=== PATIENT | male | born 1985 | race Caucasian/White ===

== ENCOUNTER 2017-04-30 19:39 | Emergency (ER) | payer BC ==
[~2017-04-30] VITALS: Ht 185.4 cm; Wt 70.3 kg
[~2017-04-30 19:39] MED LIST: AMOX875T PO; HYDR-971 PO
--- NOTE | 2017-04-30 19:48 | ED.ADGEN ---
Past History Past Medical History: No Pertinent History Past Surgical History: No Surgical History Alcohol Use: None Drug Use: None Adult General HPI HPI Patient is a 31-year-old man, with no significant past no history, who presents to the emergency department with complaint of right toe pain. Patient states he was "horsing around", with his sister, when a door was slammed and he struck his toe against the door. Patient states this occurred about an hour prior to arrival, states she was ambulating on the foot, noted increased swelling and pain and pressure underneath the nail, prompting him to come to the ED for evaluation. He denies any other injuries, didn't take any medications prior to coming to the ED, states his tetanus is up-to-date. Review of Systems Review of Systems Constitutional: Denies fever or chills [] Eyes: Denies change in visual acuity, redness, or eye pain [] HENT: Denies nasal congestion or sore throat [] Respiratory: Denies cough or shortness of breath [] Cardiovascular: No additional information not addressed in HPI [] GI: Denies abdominal pain, nausea, vomiting, bloody stools or diarrhea [] : Denies dysuria or hematuria [] Musculoskeletal: Denies back pain, complaining of pain swelling and bleeding from the right great toe. Integument: Denies rash or skin lesions [] Neurologic: Denies headache, focal weakness or sensory changes [] Endocrine: Denies polyuria or polydipsia [] Current Medications Current Medications Current Medications Medications (Trade) Dose Ordered Sig/Marion Start Time Stop Time Status Last Admin Dose Admin Cephalexin HCl (Keflex) 500 mg 1X ONCE 04/30/17 23:15 04/30/17 23:16 DC 04/30/17 23:15 500 MG Lidocaine HCl 20 ml 1X ONCE 04/30/17 22:30 04/30/17 22:31 DC 04/30/17 22:30 20 ML Lidocaine/ Epinephrine (Let Topical) 3 ml 1X ONCE 04/30/17 22:30 04/30/17 22:31 DC 04/30/17 22:30 3 ML Naproxen (Naprosyn) 500 mg 1X ONCE 04/30/17 20:00 04/30/17 20:01 DC 04/30/17 20:00 500 MG Tramadol HCl (Starter Pack - Ultram) 1 startpack 1X ONCE 04/30/17 23:15 04/30/17 23:16 DC 04/30/17 23:15 1 STARTPACK Allergies Allergies Allergies Coded Allergies Type Severity Reaction Last Updated Verified No Known Drug Allergies 08/18/16 No Physical Exam Physical Exam Constitutional: Well developed, well nourished, no acute distress, non-toxic appearance. [] HENT: Normocephalic, atraumatic, bilateral external ears normal, oropharynx moist, no oral exudates, nose normal. [] Eyes: PERRLA, EOMI, conjunctiva normal, no discharge. [] Neck: Normal range of motion, no tenderness, supple, no stridor. [] Cardiovascular:Heart rate regular rhythm, no murmur, S1, S2, no rubs or gallops. [] Lungs & Thorax: Bilateral breath sounds clear to auscultation, no wheezing, rhonchi, rales. [][] Extremities: Patient with maceration and stellate laceration to the subcutaneous continues tissue noted to the distal tip of the right great toe, significant soft tissue swelling noted, oozing from stellate laceration, patient noted to have a large subungual hematoma, extending the full length of the nail the great toe, tenderness to palpation, full range of motion, no tenderness in the dorsum of the foot, no other injuries identified. No cyanosis , no clubbing, ROM intact, no edema. [] Neurologic: Alert and oriented X 3, normal motor function, normal sensory function, no focal deficits noted. [] Psychologic: Affect normal, judgement normal, mood normal. [] Current Patient Data Vital Signs Vital Signs Date Time Temp Pulse Resp B/P (MAP) Pulse Ox O2 Delivery O2 Flow Rate FiO2 04/30/17 23:27 92 20 153/70 (97) 98 Room Air 04/30/17 19:47 97.8 EKG EKG Not indicated. [] Radiology/Procedures Radiology/Procedures Right toes: Three-view: No obvious fracture, dislocation, foreign body, noted to have soft tissue swelling. As interpreted by me. Course & Med Decision Making Course & Med Decision Making Pertinent Labs and Imaging studies reviewed. (See chart for details) Patient with significant maceration with a small stellate laceration of the distal aspect of the right great toe, with a large subungual hematoma. Trephination was performed with evacuation of a moderate amount of dark red blood, patient again he had a oozing from the laceration noted that she'll aspect of the toe. Sensation and motor function is intact. Area was irrigated with sterile saline, wound edges were approximated with 2 sutures using 5-0 Vicryl, due to the degree of maceration, some debridement of the subcutaneous tissue was also performed. Patient had Steri-Strips applied, did discuss with patient that he will likely lose the toenail, due to the degree of maceration, and although I do not see obvious fracture, patient did have significant contamination of the wound before he came in to see us, he was initiated on oral antibiotics with Keflex, along with [id number] medications such as acetaminophen, and ibuprofen at home, was given a dose of naproxen the ED, and a prescription for Ultram. Patient did drive to the ED today. Patient was placed in a bulky dressing, with a hard soled shoe, and given a work note. Told to return to the ED in 5-7 days for suture removal, and to return any time if concerning symptoms develop. Patient voiced understanding and agreement with plan as stated. Discharged home in stable condition with family with plan as above. Final Impression Final Impression [] Problems: Dragon Disclaimer Dragon Disclaimer This electronic medical record was generated, in whole or in part, using a voice recognition dictation system. Departure: Impression: Primary Impression: Injury of right great toe Scripts Tramadol Hcl (ULTRAM) 50 Mg Tablet 50 MG PO PRN Q6HRS Y for PAIN, #10 TAB Prov: NEELAM SORENSEN DO 04/30/17 Cephalexin (KEFLEX) 500 Mg Capsule 1 CAP PO QID, #28 CAP Prov: NEELAM SORENSEN DO 04/30/17 Laceration Repair Lac Repair Indication: Stellate laceration to the distal aspect of the right great toe, Y- shaped, approximately half centimeter by 0.25 x 0.25 cm Procedure: The patient was placed in the appropriate position and topical anesthesia was applied using gel, the area was then irrigated using sterile saline under pressure. Additional analgesia administered using 2% lidocaine, which is infiltrated around the wound site with good effect. The laceration was approximated, and 2 simple interrupted sutures using 5-0 Ethilon were applied with good proximal patient would edges after a small amount debridement was applied to the underlying subcutaneous continues tissues. There is significant damage these tissues, did discuss with patient that this is a very fragile area. Steri-Strips were then applied along with mastic for additional support, area was placed in a bulky sterile dressing, and patient was then placed in a surgical shoe for extra support and protection. Total repaired wound length: [Y-shaped laceration, stellate, approximately 0.5 cm x 0.25 cm x 0.25 cm in length Other Items: [None The patient tolerated the procedure [well Complications: None. NEELAM SORENSEN DO Apr 30, 2017 19:48
[2017-04-30] MEDS ORDERED: NAPROXEN 500 MG TABLET PO ONE (20:00)
[2017-04-30] MEDS ORDERED: LIDOCAINE 2% 20 ML VIAL. IJ ONE (22:30)
[2017-04-30] MEDS ORDERED: LIDOCAINE/EPI/TETRACAINE TOPICAL GEL 3 ML. TP ONE (22:30)
[2017-04-30] MEDS ORDERED: CEPH-264 PO (22:59)
[2017-04-30] MEDS ORDERED: TRAM-48 PO (22:59)
[2017-04-30] MEDS ORDERED: CEPHALEXIN 250 MG CAPSULE PO ONE (23:15)
[2017-04-30] MEDS ORDERED: START PACK - traMADol 1 STARTPACK TABLET PO ONE (23:15)
[2017-04-30 23:27] VITALS: BP 153/70
--- NOTE | 2017-05-01 08:53 | RAD ---
Right great toe, 3 views, 04/30/2017: History: Toe injury There is a small cortical fracture arising from the dorsal aspect of the terminal tuft of the distal phalanx. There is slight displacement of this small fracture fragment. No other fracture or dislocation is evident. There is mild spurring at the first MTP joint. IMPRESSION: Small terminal tuft fracture. Note: The findings were called to personnel in the [facility] ER at 8:49 AM on 05/01/2017.
== END 2017-04-30 23:17 | disposition home or self-care (01) ==
LOC: ER 19:39
DX: S91.111A Laceration without foreign body of right great toe without damage to nail, initial encounter (principal); W22.8XXA Striking against or struck by other objects, initial encounter; Y93.89 Activity, other specified; Y99.8 Other external cause status; Y92.89 Other specified places as the place of occurrence of the external cause
CPT/HCPCS: 12031; 73660; 99284-25; J2001

== ENCOUNTER 2017-05-07 10:35 | Emergency (ER) | payer BC ==
[~2017-05-07] VITALS: Ht 185.4 cm; Wt 70.3 kg
[~2017-05-07 10:35] MED LIST changes: +CEPH-264 PO; +TRAM-48 PO
[2017-05-07 10:58] VITALS: BP 138/87
--- NOTE | 2017-05-07 11:01 | PHYS DOC ---
Past History Past Medical History: No Pertinent History Past Surgical History: No Surgical History Alcohol Use: None Drug Use: None Adult General Chief Complaint Chief Complaint: SUTURE/STAPLE REMOVAL HPI HPI Patient is coming to the emergency department essentially to get suture removed from crush injury to big toe. Note says there is [address] however I can only find 1. Patient says the pain is improving and there is no drainage and no increased redness. Review of Systems Review of Systems Constitutional: Denies fever or chills [] Allergies Allergies Allergies Coded Allergies Type Severity Reaction Last Updated Verified No Known Drug Allergies 08/18/16 No Physical Exam Physical Exam Constitutional: Well developed, well nourished, no acute distress, non-toxic appearance. [] Skin: Wound clean dry and intact with no drainage or cellulitis EKG EKG [] Radiology/Procedures Radiology/Procedures [] Course & Med Decision Making Course & Med Decision Making Sutures removed with no complications. We will DC with routine wound care and follow-up as needed Dragon Disclaimer Dragon Disclaimer This chart was dictated in whole or in part using Voice Recognition software in a busy, high-work load, and often noisy Emergency Department environment. It may contain unintended and wholly unrecognized errors or omissions. Departure Departure: Impression: Primary Impression: Visit for suture removal Disposition: HOME, SELF-CARE Condition: GOOD Referrals: PCP,NO (PCP) Patient Instructions: Suture Removal CESIA WAYNE DO May 07, 2017 11:01
== END 2017-05-07 11:10 | disposition home or self-care (01) ==
LOC: ER 10:35
DX: S91.11 Laceration without foreign body of toe without damage to nail (principal); W23.0XXD Caught, crushed, jammed, or pinched between moving objects, subsequent encounter; Y99.8 Other external cause status; Y92.89 Other specified places as the place of occurrence of the external cause
CPT/HCPCS: 99281

== ENCOUNTER 2018-03-03 21:31 | Emergency (ER) | payer SELFPAY ==
[~2018-03-03] VITALS: Ht 185.4 cm; Wt 70.3 kg
--- NOTE | 2018-03-03 21:56 | ED.ADGEN ---
Past History Past Medical History: No Pertinent History Past Surgical History: No Surgical History Smoking: Cigarettes Alcohol Use: None Drug Use: None Adult General Chief Complaint Chief Complaint ".. I got bad dental pain...".." These lower teeth... " (23,24, 25, 26, 27, 28) " HPI HPI Patient is a 32 year old male who presents with complaints of dental pain. Teeht 23, 24, 25, 26, 27, 28 tender to percussion. Multiple area s of caries. Pt. denies any trismus. No history of trauma. No history immunosuppression. No specific ill contacts. Patient has not followed up with her dentist recently. Review of Systems Review of Systems Constitutional: Denies fever or chills [] Eyes: Denies change in visual acuity, redness, or eye pain [] HENT: Denies nasal congestion or sore throat []complaints of dental pain Respiratory: Denies cough or shortness of breath [] Cardiovascular: No additional information not addressed in HPI [] GI: Denies abdominal pain, nausea, vomiting, bloody stools or diarrhea [] : Denies dysuria or hematuria [] Musculoskeletal: Denies back pain or joint pain [] Integument: Denies rash or skin lesions [] Neurologic: Denies headache, focal weakness or sensory changes [] Endocrine: Denies polyuria or polydipsia [] All other systems were reviewed and found to be within normal limits, except as documented in this note. Family History Family History Noncontributory Current Medications Current Medications Current Medications Medications (Trade) Dose Ordered Sig/Marion Start Time Stop Time Status Last Admin Dose Admin Cephalexin HCl (Keflex) 500 mg 1X ONCE 03/03/18 22:30 03/03/18 22:31 DC 03/03/18 22:26 500 MG Hydrocodone Bitartrate/ Ibuprofen (Vicoprofen 7.5-200) 1 tab 1X ONCE 03/03/18 22:15 03/03/18 22:21 DC 03/03/18 22:27 1 TAB See nursing for home meds Allergies Allergies Allergies Coded Allergies Type Severity Reaction Last Updated Verified No Known Drug Allergies 08/18/16 No Physical Exam Physical Exam Constitutional: in acute distress, non-toxic appearance. [] HENT: Normocephalic, atraumatic, bilateral external ears normal, oropharynx moist, no oral exudates, nose normal. []Multiple dental caries. Localized pain to lower right teeth 23, thru 28. Eyes: PERRLA, EOMI, conjunctiva normal, no discharge. [] Neck: Normal range of motion, no tenderness, supple, no stridor. [] Cardiovascular:Heart rate regular rhythm, no murmur [] Lungs & Thorax: Bilateral breath sounds equal with scattered wheezes on auscultation [] Abdomen: Bowel sounds normal, soft, no tenderness, no masses, no pulsatile masses. [] Skin: Warm, dry, no erythema, no rash. [] Back: No tenderness, no CVA tenderness. [] Extremities: No tenderness, no cyanosis, no clubbing, ROM intact, no edema. [] Neurologic: Alert and oriented X 3, normal motor function, normal sensory function, no focal deficits noted. [] Psychologic: Affect anxious, judgement normal, mood normal. [] Current Patient Data Vital Signs Vital Signs Date Time Temp Pulse Resp B/P (MAP) Pulse Ox O2 Delivery O2 Flow Rate FiO2 03/03/18 22:25 78 20 98 03/03/18 21:43 97.9 Room Air EKG EKG [] Radiology/Procedures Radiology/Procedures [] Course & Med Decision Making Course & Med Decision Making Pertinent Labs and Imaging studies reviewed. (See chart for details). Must see a dentist. Recommended patient stop smoking.. Take Keflex 503 times a day. Tylenol and ibuprofen for pain. For marked pain may take Vicoprofen 4 times a day. Must follow-up with Dentist. [] Final Impression Final Impression 1. Dental Pain[] 2. Dental Caries 3. Tobacco use Dragon Disclaimer Dragon Disclaimer This electronic medical record was generated, in whole or in part, using a voice recognition dictation system. ROBERTO BAUMANN MD Mar 03, 2018 21:55
[2018-03-03] MEDS ORDERED: CEPH-264 PO (22:10)
[2018-03-03] MEDS ORDERED: HYDR-79 PO (22:10)
[2018-03-03] MEDS ORDERED: HYDROcodon/IBUPROFEN 7.5/200MG 1 TAB TABLET PO ONE (22:15)
[2018-03-03 22:25] VITALS: BP 138/82
[2018-03-03] MEDS ORDERED: CEPHALEXIN 250 MG CAPSULE PO ONE (22:30)
== END 2018-03-03 22:30 | disposition home or self-care (01) ==
LOC: ER 21:31
DX: K02.9 Dental caries, unspecified (principal); F17.210 Nicotine dependence, cigarettes, uncomplicated
CPT/HCPCS: 99283